=== PATIENT | female | born 1980 | race Caucasian/White ===

== ENCOUNTER 2019-04-12 19:06 | Emergency (ER) | payer BC ==
[2019-04-12] MEDS ORDERED: SUCRALFATE 1 GM TABLET PO ONE (19:49)
--- NOTE | 2019-04-12 19:54 | ER Document Report ---
ED Medical Screen (RME) - General Chief Complaint: Chest Pain Stated Complaint: CHEST PAIN Time Seen by Provider: 04/12/19 19:40 Notes: Patient is a 38-year-old female who presents to the emergency department with a chief complaint of chest pain. She states that she has had her chest pain on and off for the past 2 nights. Today she took 300 mg of Zantac, 80 mg of Prilosec, Maalox, and Tums to help with her symptoms and has not had any relief. She states that she feels like she has pressure in her chest. Patient was diagnosed with pneumonia and she is currently on Augmentin and on day 3 of prednisone. Patient has a past medical history of mitral valve prolapse and tachycardia. Exam: Clear breath sounds to auscultation bilaterally. S1, S2. I have greeted and performed a rapid initial assessment of this patient. A comprehensive ED assessment and evaluation of the patient, analysis of test results and completion of medical decision making process will be conducted by an additional ED providers. TRAVEL OUTSIDE OF THE [place] IN LAST 30 DAYS: No - Related Data Allergies/Adverse Reactions: No Known Allergies Allergy (Verified 04/12/19 19:07) Past Medical History - Social History Frequency of alcohol use: None Drug Abuse: None Pulmonary Medical History: Reports: Hx Pneumonia Renal/ Medical History: Denies: Hx Peritoneal Dialysis Past Surgical History: Reports: Hx Oral Surgery - wisdom teeth Physical Exam - Vital signs Vitals: Temp Pulse Resp BP Pulse Ox 98.1 F 65 16 142/65 H 96 04/12/19 19:18 04/12/19 19:18 04/12/19 19:18 04/12/19 19:18 04/12/19 19:18 Course - Vital Signs Vital signs: Temp Pulse Resp BP Pulse Ox 98.1 F 65 16 142/65 H 96 04/12/19 19:18 04/12/19 19:18 04/12/19 19:18 04/12/19 19:18 04/12/19 19:18
[2019-04-12 20:51] LABS: ABSOLUTE LYMPHOCYTES (AUTO) 0.8 10^3/uL (0.5-4.7); ABSOLUTE MONOCYTES (AUTO) 0.6 10^3/uL (0.1-1.4); ABSOLUTE NEUT (AUTO) 9.3 10^3/uL (1.7-8.2); BASOPHILS % (AUTO) 0.2 % (0-2); EOSINOPHILS % (AUTO) 0.1 % (0-6); HEMATOCRIT 40.1 % (36.0-47.0); HEMOGLOBIN 13.5 g/dL (12.0-15.5); LYMPHOCYTES % (AUTO) 7.8 % (13-45); MEAN CORPUSCULAR HEMOGLOBIN 31.1 pg (27.0-33.4); MEAN CORPUSCULAR HGB CONC 33.5 g/dL (32.0-36.0); MEAN CORPUSCULAR VOLUME 93 fl (80-97); MONOCYTES % (AUTO) 5.3 % (3-13); PLATELET COUNT 239 10^3/uL (150-450); RED BLOOD COUNT 4.32 10^6/uL (3.72-5.28); RED CELL DISTRIBUTION WIDTH 13.3 % (11.5-14.0); SEGMENTED NEUTROPHILS % (AUTO) 86.6 % (42-78); TOTAL CELLS COUNTED % (AUTO) 100 %; WHITE BLOOD COUNT 10.7 10^3/uL (4.0-10.5)
--- NOTE | 2019-04-12 21:05 | RADIOLOGY REPORT (SQ) ---
EXAM DESCRIPTION: CLINICAL HISTORY: 38 years Female, chest pain COMPARISON: None. FINDINGS: Cardiomediastinal silhouette is not enlarged. No suspicious lung pleural or pulmonary abnormalities. IMPRESSION: Negative chest x-ray.
[2019-04-12 21:07] LABS: ALBUMIN 4.4 g/dL (3.5-5.0); ALKALINE PHOSPHATASE 57 U/L (38-126); ANION GAP 11 (5-19); ASPARTATE AMINO TRANSFERASE 14 U/L (14-36); BILIRUBIN,DIRECT 0.2 mg/dL (0.0-0.4); BILIRUBIN,TOTAL 0.8 mg/dL (0.2-1.3); BLOOD UREA NITROGEN 12 mg/dL (7-20); CALCIUM 9.6 mg/dL (8.4-10.2); CARBON DIOXIDE 27 mmol/L (22-30); CHLORIDE 102 mmol/L (98-107); GLUCOSE 109 mg/dL (75-110); POTASSIUM 4.3 mmol/L (3.6-5.0); TOTAL PROTEIN 7.3 g/dL (6.3-8.2)
--- NOTE | 2019-04-12 21:40 | ER Document Report ---
ED General - General Chief Complaint: Chest Pain Stated Complaint: CHEST PAIN Time Seen by Provider: 04/12/19 19:40 Notes: Patient is a 38-year-old female that comes emergency department for chief complaint of pain in this center of her chest. Symptoms have been going on for 2 days, she states occasionally the pain is very sharp. She states she woke up twice last night with pain and had trouble going back to sleep. Pain does come and go somewhat. She denies nausea, vomiting, difficulty breathing, fever/chills. She states she has also been getting some muscle spasms in her back. She is currently on Augmentin and concern for a sinus infection, she was also treated for a persistent pneumonia before that. She denies current cough. She has a history of GERD is taking Prilosec, she states she took Zantac, Tums, etc. but this did not seem to improve her symptoms significantly. She denies smoking, recreational drugs, cardiac history. She does have a history of family cardiac history. TRAVEL OUTSIDE OF THE [place] IN LAST 30 DAYS: No - Related Data Allergies/Adverse Reactions: No Known Allergies Allergy (Verified 04/12/19 19:07) Past Medical History - General Information source: Patient - Social History Smoking Status: Never Smoker Frequency of alcohol use: None Drug Abuse: None Lives with: Family Family History: Reviewed & Not Pertinent Patient has suicidal ideation: No Patient has homicidal ideation: No Pulmonary Medical History: Reports: Hx Pneumonia Renal/ Medical History: Denies: Hx Peritoneal Dialysis Past Surgical History: Reports: Hx Oral Surgery - wisdom teeth - Immunizations Immunizations up to date: Yes Hx Diphtheria, Pertussis, Tetanus Vaccination: Yes Review of Systems - Review of Systems Constitutional: No symptoms reported EENT: See HPI Cardiovascular: See HPI Respiratory: See HPI Gastrointestinal: No symptoms reported Genitourinary: No symptoms reported Female Genitourinary: No symptoms reported Musculoskeletal: See HPI Skin: No symptoms reported Hematologic/Lymphatic: No symptoms reported Neurological/Psychological: No symptoms reported Physical Exam - Vital signs Vitals: Temp Pulse Resp BP Pulse Ox 98.1 F 65 16 142/65 H 96 04/12/19 19:18 04/12/19 19:18 04/12/19 19:18 04/12/19 19:18 04/12/19 19:18 - Notes Notes: GENERAL: Alert, interacts well. No acute distress. HEAD: Normocephalic, atraumatic. EYES: Pupils equal, round, and reactive to light. Extraocular movements intact. ENT: Oral mucosa moist, tongue midline. Oropharynx unremarkable. Airway patent. LUNGS: Clear to auscultation bilaterally, no wheezes, rales, or rhonchi. No respiratory distress. Point tenderness along the mid lower sternal border bilaterally. She is very reproducible with some wincing. No erythema, swelling, crepitus. HEART: Regular rate and rhythm. No murmur ABDOMEN: Soft, non-tender. Non-distended. Bowel sounds present in all 4 quadrants. GENITOURINARY: Deferred EXTREMITIES: Moves all 4 extremities spontaneously. No edema, normal radial and dorsalis pedis pulses bilaterally. No cyanosis. BACK: no cervical, thoracic, lumbar midline tenderness. No saddle anesthesia, normal distal neurovascular exam. Moves all extremities in full range of motion. NEUROLOGICAL: Alert and oriented x3. Normal speech. Cranial nerves II through XII grossly intact. PSYCH: Normal affect, normal mood. SKIN: Warm, dry, normal turgor. No rashes or lesions noted. Course - Re-evaluation Re-evalutation: Work-up unremarkable. Troponin negative. Chest x-ray clear. CBC, chemistry unremarkable. Patient has no symptoms on my evaluation unless I press over her chest wall, she has bilateral parasternal tenderness over her chest wall. Abd omen unremarkable. Vital signs unremarkable. I have a low suspicion of infection, ACS, or pulmonary embolism based on her exam, work-up, vital signs. I discussed work-up with patient. Discussed options, patient is mainly grateful that her work-up is negative at this time, did provide her with muscle relaxer (she states she still gets some muscle spasms in her back after months of coughing, this will be used for both), she will complete her prednisone, discussed follow-up and return precautions. Patient states understanding and agreement. - Vital Signs Vital signs: Temp Pulse Resp BP Pulse Ox 98.1 F 65 17 109/65 98 04/12/19 19:18 04/12/19 19:18 04/12/19 22:01 04/12/19 22:01 04/12/19 22:01 - Laboratory Result Diagrams: 04/12/19 20:28 04/12/19 20:28 Laboratory results interpreted by me: 04/12/19 20:28 WBC 10.7 H Seg Neutrophils % 86.6 H Lymphocytes % 7.8 L Absolute Neutrophils 9.3 H Discharge - Discharge Clinical Impression: Chest pain Qualifiers: Chest pain type: unspecified Qualified Code(s): R07.9 - Chest pain, unspecified Condition: Stable Disposition: HOME, SELF-CARE Instructions: Oral Narcotic Medication ([facility]) Additional Instructions: Your evaluation shows chest wall pain. This can take a while to resolve. The chest x-ray, EKG, troponin, and lab work-up did not show any concerning findi ngs. You have been provided with a small amount of pain medication to take at night if needed, you can take 1 to 2 tablets every 6 hours of these. You also been provided with muscle relaxer for your back and chest. This can help. Apply heat over the chest. Continue your current medications. Return if you worsen including difficulty breathing, passing out, vomiting, fever, or any other concerning or worsening symptoms. Prescriptions: Methocarbamol [Robaxin-750] 750 mg PO QID PRN #20 tablet PRN Reason:
[2019-04-12 22:04] VITALS: BP 109/65
[2019-04-12] MEDS ORDERED: HYDROCODONE/ACETAMINOPHEN 5-325 MG (6 TAB/ER DISP) PO PRN (22:24)
--- NOTE | 2019-04-13 13:18 | EKG REPORT ---
SEVERITY:- NORMAL ECG - SINUS RHYTHM : Confirmed by: Javier Orta MD 13-Apr-2019 13:18:09
== END 2019-04-12 23:05 | disposition home or self-care (01) ==
LOC: ER 19:06
DX: R07.9 Chest pain, unspecified (principal); M62.830 Muscle spasm of back; J32.9 Chronic sinusitis, unspecified; K21.9 Gastro-esophageal reflux disease without esophagitis; Z79.899 Other long term (current) drug therapy; Z87.01 Personal history of pneumonia (recurrent)
CPT/HCPCS: 36415; 71045; 80053; 84484; 85025; 93005; 93010; 99285